=== PATIENT | female | born 1990 | race Caucasian/White ===

== ENCOUNTER 2019-02-27 14:25 | Emergency (ER) | payer OTHER ==
[~2019-02-27] VITALS: Ht 170.2 cm; Wt 63.5 kg
[2019-02-27 15:02] LABS: HEMATOCRIT 38.9 % (37.0-47.0); HEMOGLOBIN 13.5 gm/dL (12.0-15.0); MCH 30.4 pg (26.0-34.0); MCHC 34.6 g/dL (28.0-37.0); MCV 87.9 fL (80.0-100.0); MPV 8.8 fl. (7.2-11.1); NUCLEATED RBCS 0 /100WBC; PLATELET COUNT* 195 thou/uL (150-400); RBC 4.43 mil/uL (4.20-5.00); RDW-CV 13.9 % (10.5-14.5); WBC 8.8 thou/uL (4.0-11.0)
[2019-02-27 15:20] LABS: CALCIUM 8.9 mg/dL (8.5-10.1); CREATININE 0.6 mg/dL (0.6-1.3); POTASSIUM 3.5 mmol/L (3.5-5.1)
[2019-02-27 15:30] LABS: ALBUMIN 3.6 g/dL (3.4-5.0); TOTAL BILIRUBIN 0.7 mg/dL (<0.1-1.0); TOTAL PROTEIN 7.2 g/dL (6.4-8.2)
[2019-02-27 15:32] LABS: ABSOLUTE LYMPHOCYTES 0.7 thou/uL (0.8-5.3); ABSOLUTE MONOCYTES 0.5 thou/uL (0.0-1.2); ABSOLUTE NEUTROPHILS 7.6 thou/uL (1.6-8.1); ATYPICAL LYMPHS 2 %; PLATELET ESTIMATE ADEQUATE
[2019-02-27 16:01] LABS: URINE BILIRUBIN NEGATIVE (Negative); URINE BLOOD TRACE (Negative); URINE CLARITY CLEAR; URINE COLOR YELLOW; URINE GLUCOSE-RANDOM NEGATIVE (Negative); URINE LEUKOCYTES-REFLEX NEGATIVE (Negative); URINE NITRITE-REFLEX NEGATIVE (Negative); URINE PROTEIN NEGATIVE (Negative); URINE SPECIFIC GRAVITY >= 1.030 (1.005-1.030); URINE UROBILINOGEN 0.2 E.U./dl (0.2-1.0)
[2019-02-27 16:04] LABS: URINE KETONES 3+ (Negative)
[2019-02-27] MEDS ORDERED: ZOFRAN ODT4 MG PO (16:07)
[2019-02-27 16:39] VITALS: BP 106/45
== END 2019-02-27 16:39 | disposition home or self-care (01) ==
LOC: M.ERS 14:25
PROVIDERS: Nurse Practitioner Family
DX: O99.611 Diseases of the digestive system complicating pregnancy, first trimester (principal); O21.0 Mild hyperemesis gravidarum; Z3A.01 Less than 8 weeks gestation of pregnancy

== ENCOUNTER 2021-02-16 19:01 | Emergency (ER) | payer OTHER, MEDICAID ==
[~2021-02-16] VITALS: Ht 170.2 cm; Wt 79.4 kg
[~2021-02-16 19:01] MED LIST: ZOFRAN ODT4 MG PO
[2021-02-16 20:24] LABS: INFLUENZA A ANTIGEN Negative (Negative); INFLUENZA B ANTIGEN Negative (Negative)
[2021-02-16] MEDS ORDERED: TESSALON PERLE100 MG PO (20:44)
[2021-02-16] MEDS ORDERED: PROAIR HFA8.5 GM INH (20:44)
[2021-02-16] MEDS ORDERED: PREDNISONE 10 M10 MG PO (20:44)
[2021-02-16] MEDS ORDERED: DOXYCYCLINE 10100 M2 PO (20:44)
[2021-02-16 20:54] VITALS: BP 102/76
== END 2021-02-16 20:55 | disposition home or self-care (01) ==
LOC: M.ERS 19:01
PROVIDERS: Physician Assistant
DX: J18.9 Pneumonia, unspecified organism (principal); Z20.822 Contact with and (suspected) exposure to COVID-19